=== PATIENT | male | born 1950 | race Caucasian/White ===

== ENCOUNTER → 2018-12-14 | Outpatient (CLI) | payer MEDICARE ==
--- NOTE | 2018-12-14 16:33 | REP ---
Clinical: Right hand pain. Technique: AP, lateral, bilateral oblique views of the right hand. Findings: Generalized age-related arthritic changes are appreciated along with partial amputation of the second distal phalanx part. No acute fracture dislocation. Impression: No acute fracture or dislocation. Electronically Signed by Solo Gibbs MD 12/14/2018 04:25 P
== END ==
LOC: M WUC 15:51
PROVIDERS: ATTEND Physician Assistant
DX: M79.641 Pain in right hand (principal)